=== PATIENT | male | born 1995 | race Caucasian/White ===

== ENCOUNTER 2020-07-08 07:46 | Emergency (ER) | payer OTHER ==
[2020-07-08] MEDS ORDERED: CYCLOBENZAPRINE10 MG PO (09:00)
[2020-07-08] MEDS ORDERED: NAPROSYN500 MG PO (09:00)
== END 2020-07-08 09:15 | disposition home or self-care (01) ==
LOC: ER1 07:46
DX: S39.012A Strain of muscle, fascia and tendon of lower back, initial encounter (principal); S29.012A Strain of muscle and tendon of back wall of thorax, initial encounter; V49.40XA Driver injured in collision with unspecified motor vehicles in traffic accident, initial encounter; Y92.410 Unspecified street and highway as the place of occurrence of the external cause
CPT/HCPCS: 72128; 72131; 96372; 99283; 99284; J1885